=== PATIENT | male | born 1985 | race Caucasian/White ===

== ENCOUNTER 2024-11-12 08:14 | Observation (INO) ==
--- NOTE | 2024-11-12 09:00 | Emergency Department Note ---
Impression & Plan Lumbar back pain with radiculopathy affecting lower extremity, Herniated lumbar intervertebral disc ED Provider Note CHIEF COMPLAINT: Right-sided low back pain x 2 days HISTORY OF PRESENT ILLNESS: Patient is a 39-year-old male with past medical history significant for PE on Eliquis, sleep apnea, hearing loss, history of lumbar laminectomy and discectomy in the past who presents to the emergency department for evaluation of low back pain. Patient was hunting and during alligators in [place] earlier this week. He was doing a lot of heavy lifting, bending, twisting and pulling. He states that on Sunday, 2 days ago, he was trying to move one of the alligators, when he felt something in his right low back. It was not a pop but maybe a pull per se and afterwards, lifting and movement was uncomfortable. He woke up on Sunday,, was in fairly significant discomfort, but drove the 16 hours home from [place] to [place]. He took multiple doses of Tylenol throughout the day. He states the back pain has gotten worse. He cannot stand upright or put any weight on his right leg because the leg is weak and joseph on him. He tried some topical Voltaren and wearing his back brace, all without relief. He was crawling around his home this morning because he could not stand and walk. He denies any bowel or bladder incontinence. No saddle anesthesia. He has been having ongoing issues with his back, he was following with pain management at [facility], and had several steroid injections earlier this year, prior to his PEs. No recent injections or interventions. The patient states that the pain is in the midline of his low back, on the right, it radiates out the right back into the right hip and buttock. He then also feels a sharp pain in the right calf, and weakness in the right thigh. No numbness or tingling. REVIEW OF SYSTEMS: Review of systems as per HPI. All other systems reviewed were negative. 10 systems reviewed. PMH: External medical records are reviewed and summarized as above/below. See Problem List. SOCIAL HISTORY: Patient lives at home with his family. Employed. PHYSICAL EXAM: Vital Signs: Reviewed Nurse's notes. CONSTITUTIONAL: Patient is a markedly uncomfortable appearing 39-year-old male who is awake and alert and in obvious distress due to his stated complaint. There is significant discomfort with position changes. CARDIOVASCULAR: Regular rate and rhythm. Peripheral pulses easily palpable. RESPIRATORY: Breath sounds equal and clear to auscultation. ABDOMEN: Bowel sounds are present. Abdomen is soft, nontender and nondistended. INTEGUMENTARY: No lesions or rash, normal skin turgor. LYMPH: No lymphadenopathy. SPINE: Examination of the patient's back does not demonstrate any ecchymosis, abrasions or outward signs of trauma. No erythema, increased warmth or induration. Well-healed surgical scar noted. Patient has midline discomfort to palpation over the low lumbar spine, primarily on the right. Pain extends over the right PSIS, to the right buttock and right greater trochanter. EXTREMITIES: Leg lengths are symmetrical. Negative logroll bilaterally. Strength to right ankle dorsiflexion/plantarflexion is 4/5, compared to 5/5 on the left. Right patellar reflex is 1+, compared to 2+ on the left. Distal pulses are easily palpable. Sensation light touch is intact over the lower extremities bilaterally. Unable to tolerate SLR testing bilaterally. EMERGENCY DEPARTMENT COURSE: The patient was seen and assessed as above. External medical records are reviewed. He had a MRI through the ED in 2022. IV lock was initiated. He was treated with Zofran 4 mg, Dilaudid 1 mg IV, Toradol 30 mg IV, Decadron 10 mg IV and Valium 5 mg p.o. Lumbar spine MRI was ordered. Routine laboratory studies collected. Diagnostics, as interpreted by me: Laboratory studies: Normal white count 8100, coags unremarkable. No electrolyte imbalance, no SUKH, no concerning transaminitis. Imaging studies: Lumbar spine MRI notes a right posterior lateral disc bulge at the L5-S1 level with annular fissure, appears to abut the exiting right L5 and S1 nerve roots. Patient was reassessed. He denied any significant improvement in his pain, and was requesting something additional. MRI findings were reviewed with him. He was ordered an additional Dilaudid 1 mg IV. I did discuss admission/observation for further care and management in the hospital and he was agreeable. Patient reviewed with ED case monitor, [facility]. After review of the information above and other included data, I feel the patient requires inpatient care. Chronic conditions affecting care: History of PE on Eliquis Differential diagnosis: Lumbar strain, disc herniation, acute compression syndrome, cauda equina, diskitis, epidural abscess, hematoma or neurovascular compromise. Past Med/Surg History Problem List (Updated 11/12/24 @ 14:07 by Johana Curiel) Herniated lumbar intervertebral disc (Acute) Lumbar back pain with radiculopathy affecting lower extremity (Acute) Medical History Tinnitus, bilateral Sensorineural hearing loss, bilateral ARVIND (obstructive sleep apnea) Multiple pulmonary emboli Surgical History Hx of vasectomy Hx of arthroscopy of shoulder lt. History of laminectomy L5 History of discectomy L5 Hx of LASIK and PRK Family History Mother Cancer Social History Smoking Status: Never smoker Second Hand Exposure: No; Do You Dip or Chew Tobacco: No; Hx Alcohol Use: No Hx Substance Use: No Preferred Language: Maltese Communication Ability: Effective Economic Adviser Required: No Beliefs That Will Affect Care: None Current Living Situation: Spouse Feels Safe at Home: Yes Assistive Devices: CPAP Allergies Allergies Allergy/AdvReac Type Severity Reaction Status Date / Time No Known Drug Allergies Allergy Verified 08/19/24 13:42 Home Meds Home Medications Medication Instructions Recorded Confirmed apixaban 5 mg tablet (Eliquis) 5 mg PO BID 08/19/24 11/12/24 omega-3 fatty acids 1,000 mg 1,000 mg PO DAILY 09/14/24 11/12/24 capsule multivitamin with minerals-folic 1 tab PO DAILY 11/12/24 11/12/24 acid 200 mcg chewable tablet (Multivitamin Gummies) Results & Data (ED) Vital Signs Vital Signs - 24 hr 11/12/24 08:16 11/12/24 08:47 11/12/24 08:47 Temperature 36.7 C Temperature Source Oral Pulse Rate 67 Pulse Rate [Finger] 64 Respiratory Rate 18 20 Respiratory Effort / Characteristics Non-Labored Spontaneous Respiratory Depth Normal Respiratory Pattern Regular Blood Pressure 141/89 H Blood Pressure [Left Arm] 141/89 H Blood Pressure Mean 106 Blood Pressure Mean [Left Arm] 106 Blood Pressure Position [Left Arm] Pulse Oximetry 100 100 100 Oxygen Delivery Method Room Air Room Air Sepsis Recent Fever Within 48 Hours No Sepsis New/Unexplained Change in Mental Status No Sepsis Action Taken by Nursing No Action Required 11/12/24 11:00 Temperature Temperature Source Pulse Rate Pulse Rate [Finger] 84 Respiratory Rate 20 Respiratory Effort / Characteristics Respiratory Depth Respiratory Pattern Blood Pressure Blood Pressure [Left Arm] 119/67 Blood Pressure Mean Blood Pressure Mean [Left Arm] 84 Blood Pressure Position [Left Arm] Lying Pulse Oximetry 97 Oxygen Delivery Method Room Air Sepsis Recent Fever Within 48 Hours Sepsis New/Unexplained Change in Mental Status Sepsis Action Taken by [facility] Medications Current Medication List: was personally reviewed by me Laboratory Data Attestation: I reviewed the patient's lab results. 11/12/24 09:18 11/12/24 09:18 Lab Results 11/12/24 Range/Units 09:18 WBC 8.12 (4.8-10.8) K/ul RBC 5.77 (4.70-6.10) M/uL Hgb 16.5 (14.0-18.0) g/dl Hct 48.5 (42.0-52.0) % MCV 84.1 (80.0-100.0) fL MCH 28.6 (25.0-34.0) pg MCHC 34.0 (32.0-36.0) g/dL RDW Std Deviation 37.0 (36.4-46.3) fL RDW Coeff of Theo 12.2 (11.5-14.5) % Plt Count 264 (130-400) K/uL MPV 9.2 L (9.4-12.4) fL PT 11.0 (9.0-12.0) Seconds INR 1.0 (0.9-1.1) APTT 26 (21-31) Seconds PTT Ratio 1.0 Sodium 142 (136-145) mmol/L Potassium 4.0 (3.5-5.1) mmol/L Chloride 109 H (98-107) mmol/L Carbon Dioxide 27 (21-32) mmol/L Anion Gap 6 (3-11) BUN 13 (6-23) mg/dl Creatinine 0.92 (0.6-1.4) mg/dl Est Cr Clr Drug Dosing 141.6 ml/min eGFR 109.19 BUN/Creatinine Ratio 14.1 (10-20) Glucose 91 (70-99(Fasting)) mg/dl Calcium 9.4 (8.6-10.3) mg/dl Total Bilirubin 1.5 H (0.2-1.0) mg/dl AST 16 (13-39) U/L ALT 16 (7-52) U/L Alkaline Phosphatase 56 (34-104) U/L Total Protein 6.9 (6.0-8.3) gm/dl Albumin 4.3 (3.4-5.0) gm/dl Globulin 2.6 (2.5-4.0) gm/dl Albumin/Globulin Ratio 1.7 (0.9-2) Administered Medications Discontinued Medications Dexamethasone Sodium Phosphate (DexamethasonePf 10 Mg/Ml Vial) 10 mg IV NOW ONE Stop: 11/12/24 08:49 Last Admin: 11/12/24 09:22 Dose: 10 mg Documented By: QGV Diazepam (Diazepam 5 Mg Tablet) 5 mg PO NOW ONE Stop: 11/12/24 08:49 Last Admin: 11/12/24 09:23 Dose: 5 mg Documented By: QGV Hydromorphone HCl (Hydromorphone Inj 1 Mg/Ml Syringe) 1 mg IV NOW STA Stop: 11/12/24 08:49 Last Admin: 11/12/24 09:22 Dose: 1 mg Documented By: QGV Hydromorphone HCl (Hydromorphone Inj 1 Mg/Ml Syringe) 1 mg IV NOW STA Stop: 11/12/24 12:12 Last Admin: 11/12/24 12:37 Dose: 1 mg Documented By: SHILPI Ketorolac Tromethamine (Ketorolac 30 Mg/Ml Vial) 30 mg IV NOW STA Stop: 11/12/24 08:49 Last Admin: 11/12/24 09:22 Dose: 30 mg Documented By: QGV Ondansetron HCl (Ondansetron Inj 2 Mg/Ml 2 Ml Vial) 4 mg IV NOW STA Stop: 11/12/24 08:49 Last Admin: 11/12/24 09:22 Dose: 4 mg Documented By: QGV Imaging Data Attestation: I personally reviewed and interpreted this imaging study as follows: Radiologist's Impression: Lumbar Spine MRI 11/12/24 08:48 MRI OF THE LUMBAR SPINE WITHOUT IV CONTRAST CLINICAL HISTORY: Low back pain. Radiculopathy. COMPARISON STUDY: MRI of the lumbar spine dated 10/15/2022. Abdominal CT dated 09/14/2024. TECHNIQUE: MRI of the lumbar spine is performed utilizing various T1 and T2- weighted sequences in the axial and sagittal planes. IV contrast was not administered for this examination. FINDINGS: Lumbar spine: Vertebral body height and alignment are maintained throughout the spine. There is straightening of the lumbar lordosis. Question previous right hemilaminectomy change at L4-L5. The transverse and spinous processes appear intact. There is no evidence of spondylolysis. A small hemangioma is seen in the body of L2. No destructive bony lesion is seen. Intervertebral discs: Disc desiccation and mild loss of is seen at L4-L5 and L5- S1. The remaining discs are normal in height and signal intensity. Spinal cord: The imaged spinal cord is normal in morphology and signal intensity. The conus medullaris terminates at the level of L1. The nerve roots of the cauda equina are normal in morphology. L1-L2: Unremarkable. L2-L3: Unremarkable. L3-L4: Unremarkable. L4-L5: There is minimal posterior disc bulge and annular fissure. No central canal stenosis is seen. Lateral disc bulges causes minimal bilateral subarticular stenosis. The neural foramina are patent. Scar tissue suggested along the right anterior aspect of the thecal sac. Question a 3 mm synovial cyst arising anteriorly from the right facet joint at this level on axial T2-weighted image #26. This approximates the proximal aspect of the neural foramen but could not be corroborated on an any of the other sequences. L5-S1: There is a right posterolateral disc bulge with annular fissure seen on axial image #32. This may abut the exiting right L5 and transient right S1 nerve roots. No central canal stenosis is seen. In conjunction with facet arthropathy there is mild right neural foraminal stenosis. The left neural foramen is patent. Sacrum: Imaged portions of the sacrum is normal in morphology and signal intensity. Soft tissues: The paraspinous soft tissues are within normal limits. The retroperitoneal structures are grossly unremarkable but incompletely evaluated. IMPRESSION: 1. There is a right posterolateral disc bulge at L5-S1 with annular fissure. This may abut the exiting right L5 and transiting right S1 nerve roots. 2. Question a 3 mm synovial cyst arising anteriorly from the right facet joint at L4-L5 approximating the proximal aspect of the right neural foramen. This could not be corroborated on any of the additional sequences. 3. No significant central canal stenosis is seen. See discussion for detailed level by level analysis. 4. No destructive bony process is identified. Electronically signed by: Angelo Witt M.D. 11/12/2024 11:17 AM Discharge Plan Visit Data Chief Complaint: Back Injury/Pain Stated Complaint: BACK PAIN ED Provider: Annika Sparks ED Midlevel Provider: Johana Curiel Discharge Problem: Lumbar back pain with radiculopathy affecting lower extremity, Herniated lumbar intervertebral disc Patient Disposition: Being Evaluated by Hospitalist Condition: Fair Forms Stand Alone Forms: My [facility] Prescriptions Prescriptions: No Action multivit with min-folic acid [Multivitamin Gummies] 200 mcg Tablet,Chewable 1 tab PO DAILY Eliquis 5 mg tablet 5 mg PO BID omega-3 fatty acids 1,000 mg Capsule 1,000 mg PO DAILY Referrals Referrals: Amara Welch, [Primary Care Provider] -
[2024-11-12] MEDS: KETOROLAC 30 MG/ML VIAL IV STA (09:22)
[2024-11-12] MEDS: dexAMETHasone**PF** 10 MG/ML VIAL IV ONE (09:22)
[2024-11-12] MEDS: HYDROmorphone INJ 1 MG/ML SYRINGE IV STA ×2 (09:22→12:37)
[2024-11-12] MEDS: ONDANSETRON INJ 2 MG/ML 2 ML VIAL IV STA (09:22)
[2024-11-12 09:33] LABS: Hematocrit (blood only) 48.5 % (42.0-52.0); Hemoglobin 16.5 g/dl (14.0-18.0); Mean Corpuscular Hemoglobin 28.6 pg (25.0-34.0); Mean Corpuscular Volume 84.1 fL (80.0-100.0); Platelet Count 264 K/uL (130-400); RDW Standard Deviation 37.0 fL (36.4-46.3); Red Blood Count 5.77 M/uL (4.70-6.10); White Blood Count 8.12 K/ul (4.8-10.8)
[2024-11-12 09:50] LABS: Alanine Aminotransferase 16.0 U/L (7-52); Albumin Globulin Ratio 1.7 (0.9-2); Alkaline Phosphatase 56.0 U/L (34-104); Anion Gap 6.0 (3-11); Bilirubin,Total 1.5 mg/dl (0.2-1.0); Blood Urea Nitrogen 13.0 mg/dl (6-23); Calcium 9.4 mg/dl (8.6-10.3); Carbon Dioxide 27.0 mmol/L (21-32); Chloride 109.0 mmol/L (98-107); Creatinine Clr Calc Pharmacy 141.6 ml/min; Globulin 2.6 gm/dl (2.5-4.0); Glucose 91.0 mg/dl (70-99(Fasting)); Potassium 4.0 mmol/L (3.5-5.1); Sodium 142.0 mmol/L (136-145); Total Protein 6.9 gm/dl (6.0-8.3)
[2024-11-12 10:08] LABS: INR 1.0 (0.9-1.1); Partial Thromboplastin Time 26 Seconds (21-31); Prothrombin Time 11.0 Seconds (9.0-12.0)
--- NOTE | 2024-11-12 11:18 | Magnetic Resonance Report ---
MRI OF THE LUMBAR SPINE WITHOUT IV CONTRAST CLINICAL HISTORY: Low back pain. Radiculopathy. COMPARISON STUDY: MRI of the lumbar spine dated 10/15/2022. Abdominal CT dated 09/14/2024. TECHNIQUE: MRI of the lumbar spine is performed utilizing various T1 and T2-weighted sequences in the axial and sagittal planes. IV contrast was not administered for this examination. FINDINGS: Lumbar spine: Vertebral body height and alignment are maintained throughout the spine. There is strai ghtening of the lumbar lordosis. Question previous right hemilaminectomy change at L4-L5. The transve rse and spinous processes appear intact. There is no evidence of spondylolysis. A small hemangioma is seen in the body of L2. No destructive bony lesion is seen. Intervertebral discs: Disc desiccation and mild loss of is seen at L4-L5 and L5-S1. The remaining dis cs are normal in height and signal intensity. Spinal cord: The imaged spinal cord is normal in morphology and signal intensity. The conus medullari s terminates at the level of L1. The nerve roots of the cauda equina are normal in morphology. L1-L2: Unremarkable. L2-L3: Unremarkable. L3-L4: Unremarkable. L4-L5: There is minimal posterior disc bulge and annular fissure. No central canal stenosis is seen. Lateral disc bulges causes minimal bilateral subarticular stenosis. The neural foramina are patent. S car tissue suggested along the right anterior aspect of the thecal sac. Question a 3 mm synovial cyst arising anteriorly from the right facet joint at this level on axial T2-weighted image #26. This roselia roximates the proximal aspect of the neural foramen but could not be corroborated on an any of the ot her sequences. L5-S1: There is a right posterolateral disc bulge with annular fissure seen on axial image #32. This may abut the exiting right L5 and transient right S1 nerve roots. No central canal stenosis is seen. In conjunction with facet arthropathy there is mild right neural foraminal stenosis. The left neural foramen is patent. Sacrum: Imaged portions of the sacrum is normal in morphology and signal intensity. Soft tissues: The paraspinous soft tissues are within normal limits. The retroperitoneal structures a re grossly unremarkable but incompletely evaluated. IMPRESSION: 1. There is a right posterolateral disc bulge at L5-S1 with annular fissure. This may abut the exitin g right L5 and transiting right S1 nerve roots. 2. Question a 3 mm synovial cyst arising anteriorly from the right facet joint at L4-L5 approximating the proximal aspect of the right neural foramen. This could not be corroborated on any of the additi onal sequences. 3. No significant central canal stenosis is seen. See discussion for detailed level by level analysis . 4. No destructive bony process is identified. Electronically signed by: Angelo Witt M.D. 11/12/2024 11:17 AM
--- NOTE | 2024-11-12 12:55 | History & Physical Report ---
Date of Service November 12, 2024 Assessment & Plan (1) Lumbar back pain with radiculopathy affecting lower extremity: Plan: Patient is 39 year old male with PMH recent history unprovoked bilateral PEs, currently on Eliquis, chronic back pain presented to ER with c/o increased low back pain with RLE radicuopathy x 2 days after moving large alligators. H/O lumbar laminectomy in 2019 in [place]. H/O low back injections at [facility] in past without relief In ER afebrile, vitals stable In ER was given Toradol 30 mg IV, total 2 mg morphine IV, Valium 5 mg p.o., dexamethasone 10 mg IV, Zofran 4 mg IV MRI Lumbar spine: 1. There is a right posterolateral disc bulge at L5-S1 with annular fissure. This may abut the exiting right L5 and transiting right S1 nerve roots. 2. Question a 3 mm synovial cyst arising anteriorly from the right facet joint at L4-L5 approximating the proximal aspect of the right neural foramen. This could not be corroborated on any of the additional sequences. 3. No significant central canal stenosis is seen. See discussion for detailed level by level analysis. 4. No destructive bony process is identified. Admit med surg Pain control with Scheduled Tylenol, lidocaine patch. oxycodone, morphine as needed Flexeril Start prednisone 40 mg daily PT/OT eval Consider ortho spine consult CBC, BMP in am (2) Multiple pulmonary emboli: Plan: Unprovoked 08/14/2024 dx bilateral PEs and was started on Eliquis On Eliquis Gita ARREOLA, CP Seen by hematology, Dr. Dominguez on 08/27/2024. Negative Factor V Leiden and prothrombin gene mutation, Anticardiolipin antibody IgG and IgM and beta 2 glycoprotein IgG and IgM were normal. Per note recommended indefinite anticoagulation but pt agreed to 6 months and re-evaluate. Hematology appointment on 01/27/25 for recheck DVT Prophylaxis On Eliquis Admit med surg Follows with Dr Amara Welch for routine care Pt was seen and care coordinated with Dr Nicole. See addendum I spent a total of 62 minutes reviewing notes, outpatient records, labs, medication, coordinating, documenting and providing care for this patient excluding time spent in the performance of separately billed services and excluding time spent by another provider/QHP. History of Present Illness Chief Complaint: Back pain Primary Care Provider: Amara Welch DO Patient is 39 year old male with PMH recent history unprovoked bilateral PEs, currently on Eliquis, chronic back pain presented to ER with c/o increased low back pain x 2 days. Patient reports lumbar back surgery 2019 in [place]. Patient states since 2020 having intermittent episodes of low back pain with pain to right leg. Patient had been receiving low back injections with pain management at [facility] but felt they were not helpful. Patient reports over the weekend was hunting alligators in [place] and was lifting and moving heavy alligators. He states moved an alligator and felt increased low back pain. He reports rode in car home from [place] and upon returning home increased low back pain with radiation into buttock and calf and difficulty ambulating and moving secondary to increased pain. Also reports feels like right leg giving out when attempting to walk. Denies loss control of bowel or bladder. Denies extremity paresthesias. Denies fever/chills, diaphoresis, N/V/D/C, BARRON, dizziness, CP, SOB, palpitations, cough, rhinorrhea, abdominal pain, extremity edema, rashes, urinary symptoms. Per inpatient chart review 08/14/2024 hospitalized for bilateral PEs and was started on Eliquis. Per outpatient chart review visit with hematology, Dr. Dominguez on 08/27/2024 for follow-up PEs. His workup for Factor V Leiden and prothrombin gene mutation which were negative and Anticardiolipin antibody IgG and IgM and beta 2 glycoprotein IgG and IgM were normal. Per note discussion that patient does not want to continue anticoagulation indefinitely. It was recommended with unprovoked DVT patient ideally should continue anticoagulation indefinitely, however patient agreed to continue for 6 months and then re-evaluate. He is scheduled to return to clinic on 01/27/25 for recheck and repeat CBC and CMP. Per outpatient chart review seen by orthopedic spine at [facility] on 09/10/2024 and per office note no surgical interventions were recommended at the time secondary to recent PE and anticoagulation use Allergies Allergy/AdvReac Type Severity Reaction Status Date / Time No Known Drug Allergies Allergy Verified 08/19/24 13:42 Home Medications Medication Instructions Recorded Confirmed Type apixaban 5 mg tablet (Eliquis) 5 mg PO BID 08/19/24 11/12/24 History omega-3 fatty acids 1,000 mg 1,000 mg PO DAILY 09/14/24 11/12/24 History capsule multivitamin with minerals-folic 1 tab PO DAILY 11/12/24 11/12/24 History acid 200 mcg chewable tablet (Multivitamin Gummies) Past Med/Surg History Problem List (Updated 11/12/24 @ 14:07 by Johana Cruiel) Herniated lumbar intervertebral disc (Acute) Lumbar back pain with radiculopathy affecting lower extremity (Acute) Medical History Tinnitus, bilateral Sensorineural hearing loss, bilateral ARVIND (obstructive sleep apnea) Multiple pulmonary emboli Surgical History Hx of vasectomy Hx of arthroscopy of shoulder lt. History of laminectomy L5 History of discectomy L5 Hx of LASIK and PRK Family History Mother Cancer Social History Smoking Status: Never smoker Second Hand Exposure: Yes; Do You Dip or Chew Tobacco: No; Hx Alcohol Use: No Hx Substance Use: No Preferred Language: Lao Communication Ability: Effective Clinical Analyst Required: No Beliefs That Will Affect Care: None Current Living Situation: Spouse Other Information That Helps Us Care for You: No Feels Safe at Home: Yes Safety Concerns: Feels Safe At This Time Assistive Devices: Hearing Aid - Bilateral Review of Systems Review of Systems: All systems reviewed & are unremarkable except as noted in HPI & below Physical Exam Physical Exam: General: no distress, WDWN Head: normocephalic, atraumatic Eyes: conjunctiva non-injected, anicteric ENT: normal inspection external ears, nose, mucous membranes moist Neck: supple, trachea midline Lungs: clear, no respiratory distress, no wheezing/rhonchi/rales CV: RRR, no murmur, no pretibial edema Abd: normal BS, soft, non-tender Back: +healed surgical scar to midline low back. No ecchymosis or erythema noted to back. +tenderness to palpation over lower lumbar spinous process and right paraspinous muscles and right buttock. +straight leg raise to approx 25 degrees. distal pulses palpable, sensation to light touch intact Ext: no cyanosis, no erythema Neuro: A&O x 3, no focal deficits noted, normal affect Skin: warm, dry Results & Data Results & Data Vital Signs (Past 12 Hours) Vital Signs Temp Pulse Pulse Resp BP BP Pulse Ox 11/12/24 11:00 84 20 119/67 97 11/12/24 08:47 100 11/12/24 08:47 64 20 141/89 H 100 11/12/24 08:16 36.7 C 67 18 141/89 H 100 O2 Del Method 11/12/24 11:00 Room Air 11/12/24 08:47 Room Air 11/12/24 08:47 11/12/24 08:16 Room Air Laboratory Results Short CBC 11/12/24 Range/Units 09:18 WBC 8.12 (4.8-10.8) K/ul Hgb 16.5 (14.0-18.0) g/dl Hct 48.5 (42.0-52.0) % Plt Count 264 (130-400) K/uL BMP 11/12/24 09:18 Sodium 142 Potassium 4.0 Chloride 109 H Carbon Dioxide 27 BUN 13 Creatinine 0.92 Glucose 91 Calcium 9.4 Liver Function 11/12/24 Range/Units 09:18 Total Bilirubin 1.5 H (0.2-1.0) mg/dl AST 16 (13-39) U/L ALT 16 (7-52) U/L Alkaline Phosphatase 56 (34-104) U/L Albumin 4.3 (3.4-5.0) gm/dl Diagnostic Findings Lumbar Spine MRI 11/12/24 08:48 MRI OF THE LUMBAR SPINE WITHOUT IV CONTRAST CLINICAL HISTORY: Low back pain. Radiculopathy. COMPARISON STUDY: MRI of the lumbar spine dated 10/15/2022. Abdominal CT dated 09/14/2024. TECHNIQUE: MRI of the lumbar spine is performed utilizing various T1 and T2- weighted sequences in the axial and sagittal planes. IV contrast was not administered for this examination. FINDINGS: Lumbar spine: Vertebral body height and alignment are maintained throughout the spine. There is straightening of the lumbar lordosis. Question previous right hemilaminectomy change at L4-L5. The transverse and spinous processes appear intact. There is no evidence of spondylolysis. A small hemangioma is seen in the body of L2. No destructive bony lesion is seen. Intervertebral discs: Disc desiccation and mild loss of is seen at L4-L5 and L5- S1. The remaining discs are normal in height and signal intensity. Spinal cord: The imaged spinal cord is normal in morphology and signal intensity. The conus medullaris terminates at the level of L1. The nerve roots of the cauda equina are normal in morphology. L1-L2: Unremarkable. L2-L3: Unremarkable. L3-L4: Unremarkable. L4-L5: There is minimal posterior disc bulge and annular fissure. No central canal stenosis is seen. Lateral disc bulges causes minimal bilateral subart icular stenosis. The neural foramina are patent. Scar tissue suggested along the right anterior aspect of the thecal sac. Question a 3 mm synovial cyst arising anteriorly from the right facet joint at this level on axial T2-weighted image #26. This approximates the proximal aspect of the neural foramen but could not be corroborated on an any of the other sequences. L5-S1: There is a right posterolateral disc bulge with annular fissure seen on axial image #32. This may abut the exiting right L5 and transient right S1 nerve roots. No central canal stenosis is seen. In conjunction with facet arthropathy there is mild right neural foraminal stenosis. The left neural foramen is patent. Sacrum: Imaged portions of the sacrum is normal in morphology and signal intensity. Soft tissues: The paraspinous soft tissues are within normal limits. The retroperitoneal structures are grossly unremarkable but incompletely evaluated. IMPRESSION: 1. There is a right posterolateral disc bulge at L5-S1 with annular fissure. This may abut the exiting right L5 and transiting right S1 nerve roots. 2. Question a 3 mm synovial cyst arising anteriorly from the right facet joint at L4-L5 approximating the proximal aspect of the right neural foramen. This could not be corroborated on any of the additional sequences. 3. No significant central canal stenosis is seen. See discussion for detailed level by level analysis. 4. No destructive bony process is identified. Electronically signed by: Angelo Witt M.D. 11/12/2024 11:17 AM Supervising Physician Co-Signing Physician Notes Patient seen and examined at bedside. Discussed with above provider. Patient presents with lumbar radiculopathy pain with radiation to right lower extremity for last 2 days. Found to have right posterior lateral disc bulge at L5-S1. Started on pain control, steroid and Flexeril. Orthospine consulted; appreciate recommendation I have reviewed the advanced practitioner's documentation, and I agree with, and take responsibility for the plan of care I spent a total of 20 minutes coordinating, documenting, and providing care for this patient excluding time spent in the performance of separately billed services. All of the aforementioned completed while collaborating with the assigned advanced practitioner for a full treatment plan
[2024-11-12] MEDS ORDERED: MAGNESIUM HYDROXIDE SUSP 30 ML UDC PO PRN (15:09)
[2024-11-12] MEDS ORDERED: CYCLOBENZAPRINE HCL 5 MG TAB PO PRN (15:09)
[2024-11-12] MEDS ORDERED: ONDANSETRON INJ 2 MG/ML 2 ML VIAL IV PRN (15:09)
[2024-11-12 15:26] VITALS: RESP 18
[2024-11-12] MEDS: CYCLOBENZAPRINE HCL 5 MG TAB PO SCH (15:53)
[2024-11-12] MEDS: ACETAMINOPHEN 500 MG TAB PO SCH (15:53)
[2024-11-12] MEDS: LIDOCAINE 5% 1 PATCH TD SCH (15:53)
[2024-11-12] MEDS: REMOVE LIDODERM PATCH SCH (20:05)
[2024-11-12] MEDS: APIXABAN 5 MG TABLET PO SCH (20:07)
[2024-11-13] MEDS: MoRPHine SULFATE 4 MG/ML 1 ML CARP\\VIAL IV PRN ×2 (04:10→20:15)
[2024-11-13] MEDS: CYCLOBENZAPRINE HCL 10 MG TAB PO PRN (04:21)
[2024-11-13] MEDS: POLYETHYLENE (MIRALAX) 17 GM PACK PO PRN (07:31)
[2024-11-13] MEDS: predniSONE 20 MG TAB PO SCH (07:32)
[2024-11-13 07:39] LABS: Hematocrit (blood only) 46.8 % (42.0-52.0); Hemoglobin 15.8 g/dl (14.0-18.0); Mean Corpuscular Hemoglobin 28.2 pg (25.0-34.0); Mean Corpuscular Volume 83.6 fL (80.0-100.0); Platelet Count 237 K/uL (130-400); RDW Standard Deviation 36.6 fL (36.4-46.3); Red Blood Count 5.60 M/uL (4.70-6.10); White Blood Count 10.16 K/ul (4.8-10.8)
[2024-11-13 08:10] LABS: Alanine Aminotransferase 12.0 U/L (7-52); Albumin Globulin Ratio 1.6 (0.9-2); Alkaline Phosphatase 51.0 U/L (34-104); Anion Gap 6.0 (3-11); Bilirubin,Total 0.8 mg/dl (0.2-1.0); Blood Urea Nitrogen 19.0 mg/dl (6-23); Calcium 9.1 mg/dl (8.6-10.3); Carbon Dioxide 27.0 mmol/L (21-32); Chloride 109.0 mmol/L (98-107); Creatinine Clr Calc Pharmacy 129.8 ml/min; Globulin 2.5 gm/dl (2.5-4.0); Glucose 93.0 mg/dl (70-99(Fasting)); Potassium 4.1 mmol/L (3.5-5.1); Sodium 142.0 mmol/L (136-145); Total Protein 6.4 gm/dl (6.0-8.3)
--- NOTE | 2024-11-13 10:33 | Consultation ---
Date of Consultation November 13, 2024 Assessment & Plan (1) Herniated lumbar intervertebral disc: Imaging as well as treatment plan have been reviewed with Dr. Tavarez. We are hoping to avoid surgical intervention. He has 2 level disc disease including a synovial cyst at L4-5 on the right as well as a small disc herniation at L5-S1 on the right. He is certainly high risk given his recent PEs this year and is now on Eliquis. Will work on pain control. I will order Dopplers of bilateral lower extremities. Should he require surgical intervention would recommend referral back to tertiary care center whom he is already established with. History of Present Illness Attending Physician: Moiz Valerio MD History of Present Illness Karri is a pleasant 39-year-old gentleman who presented to the ER with back and right leg pain. He has been seen in conjunction with Dr. Tavarez. Most of his symptoms are in his back. He has a history of undergoing a prior nestor ectomy in 2019 in [place] and did well for 2 or 3 years. Since then he struggled with back pain. He was initially under the pain management care with Dr. Kumar upon group home he then has been seeing Dr. Maradiaga which has received mostly SI injections which performed provide modest relief. He is also had a recent surgical consultation by Dr. Huff who did not recommend surgical intervention in light of recent PEs and now on Eliquis. Patient was found earlier this year to have DVT in his left lower extremity which then progressed to a PE. He is still on Eliquis. Recently he states last week he was in [place] where he drove. He was moving large alligators and then 3 days ago traveled 14 hours home by driving in his car. This is when his pain really escalated. It has not been manageable at home therefore he presented to the emergency room. Denies bowel or bladder dysfunction. Does not have true pain in the right leg so to speak more of a weakness. Allergies Allergy/AdvReac Type Severity Reaction Status Date / Time No Known Drug Allergies Allergy Verified 08/19/24 13:42 Home Medications Medication Instructions Recorded Confirmed Type apixaban 5 mg tablet (Eliquis) 5 mg PO BID 08/19/24 11/12/24 History omega-3 fatty acids 1,000 mg 1,000 mg PO DAILY 09/14/24 11/12/24 History capsule multivitamin with minerals-folic 1 tab PO DAILY 11/12/24 11/12/24 History acid 200 mcg chewable tablet (Multivitamin Gummies) cyclobenzaprine 10 mg tablet 10 mg PO TID PRN back pain #30 tabs 11/14/24 Rx dexamethasone 4 mg tablet 4 mg PO DAILY 7 days #7 tabs 11/14/24 Rx lidocaine 5 % topical patch 1 patch transdermal QAM #15 ea 11/14/24 Rx oxycodone 5 mg tablet 5 mg PO Q4 PRN pain 5 days #14 tabs 11/14/24 Rx pantoprazole 40 mg tablet,delayed 40 mg PO QAM #14 tabs 11/14/24 Rx release Patient History Medical History Tinnitus, bilateral Sensorineural hearing loss, bilateral ARVIND (obstructive sleep apnea) Multiple pulmonary emboli Surgical History Hx of vasectomy Hx of arthroscopy of shoulder lt. History of laminectomy L5 History of discectomy L5 Hx of LASIK and PRK Family History Mother Cancer Social History Smoking Status: Never smoker Second Hand Exposure: Yes; Do You Dip or Chew Tobacco: No; Hx Alcohol Use: No Hx Substance Use: No Preferred Language: Setswana Communication Ability: Effective Warper Fixer Required: No Beliefs That Will Affect Care: None Current Living Situation: Spouse Feels Safe at Home: Yes Assistive Devices: CPAP Review of Systems Review of Systems: All systems reviewed & are unremarkable except as noted in HPI & below Physical Exam Physical Exam: Patient is examined by Dr. Tavarez Patient's is in the room as well He is uncomfortable he is laying on his left side with his right leg flexed and elevated on pillows Cooperative with exam Has point tenderness over the right sciatic notch nontender on the left Well-healed lumbar incision strength intact bilateral lower extremities Results & Data Vital Signs (Past 12 Hours) Vital Signs Temp Pulse Resp BP Pulse Ox O2 Del Method 11/13/24 07:21 36.6 C 60 18 132/76 99 Room Air 11/12/24 23:17 36.9 C 75 18 144/71 H 98 Room Air Diagnostic Findings [facility], [place] [phone] Magnetic Resonance Report Patient: KARRI GREEN V Admit Date: 11/12/24 MR#: [id number] Address1: [address] Acct ID:[id number] Address2: Date: 1985 [facility] Zip: [place] [address] Age: 39 Location: ED Sex: M Room/Bed: Att Phy: Diagnosis: BACK PAIN Dea Phy: Amara Welch DO Service Date: 11/12/24 Fam Phy: Interpreting Phy: Angelo Witt MDAdmit Phy: Ordering Phy: Payal Curiel PA cc: ~ MRI OF THE LUMBAR SPINE WITHOUT IV CONTRAST CLINICAL HISTORY: Low back pain. Radiculopathy. COMPARISON STUDY: MRI of the lumbar spine dated 10/15/2022. Abdominal CT dated 09/14/2024. TECHNIQUE: MRI of the lumbar spine is performed utilizing various T1 and T2-mynor ghted sequences in the axial and sagittal planes. IV contrast was not administered for this examination. FINDINGS: Lumbar spine: Vertebral body height and alignment are maintained throughout the spine. There is straightening of the lumbar lordosis. Question previous right hemilaminectomy change at L4-L5. The transverse and spinous processes appear intact. There is no evidence of spondylolysis. A small hemangioma is seen in the body of L2. No destructive bony lesion is seen. Intervertebral discs: Disc desiccation and mild loss of is seen at L4-L5 and L5- S1. The remaining discs are normal in height and signal intensity. Spinal cord: The imaged spinal cord is normal in morphology and signal intensity. The conus medullaris terminates at the level of L1. The nerve roots of the cauda equina are normal in morphology. L1-L2: Unremarkable. L2-L3: Unremarkable. L3-L4: Unremarkable. L4-L5: There is minimal posterior disc bulge and annular fissure. No central canal stenosis is seen. Lateral disc bulges causes minimal bilateral subarticular stenosis. The neural foramina are patent. Scar tissue suggested along the right anterior aspect of the thecal sac. Question a 3 mm synovial cyst arising anteriorly from the right facet joint at this level on axial T2-weighted image #26. This approximates the proximal aspect of the neural foramen but could not be corroborated on an any of the other sequences. L5-S1: There is a right posterolateral disc bulge with annular fissure seen on axial image #32. This may abut the exiting right L5 and transient right S1 nerve roots. No central canal stenosis is seen. In conjunction with facet arthropathy there is mild right neural foraminal stenosis. The left neural foramen is patent. Sacrum: Imaged portions of the sacrum is normal in morphology and signal intensity. Soft tissues: The paraspinous soft tissues are within normal limits. The retroperitoneal structures are grossly unremarkable but incompletely evaluated. IMPRESSION: 1. There is a right posterolateral disc bulge at L5-S1 with annular fissure. This may abut the exiting right L5 and transiting right S1 nerve roots. 2. Question a 3 mm synovial cyst arising anteriorly from the right facet joint at L4-L5 approximating the proximal aspect of the right neural foramen. This could not be corroborated on any of the additional sequences. 3. No significant central canal stenosis is seen. See discussion for detailed level by level analysis. 4. No destructive bony process is identified. Electronically signed by: Angelo Witt M.D. 11/12/2024 11:17 AM Dictated: 11/12/24 1106 Transcribed: 11/12/24 1106
--- NOTE | 2024-11-13 12:39 | XRay Report ---
XR lumbar spine flex/ext only CLINICAL HISTORY: standing films. Back pain. COMPARISON STUDY: Lumbar spine MRI November 12, 2024. TECHNIQUE: Standing lateral radiographs of the lumbar spine were obtained in the neutral, flexion and extension positions. FINDINGS: There is straightening of the lumbar lordosis. Alignment is otherwise anatomic. Vertebral b pinky heights are maintained. There is no evidence for instability during flexion or extension although flexion and extension appear somewhat diminished. IMPRESSION: 1. Straightening of the lumbar lordosis. No evidence for lumbar spine instability during flexion or e xtension. 2. No lumbar spine fractures. ACT 112: Negative or not required by law. Electronically signed by: Bennett Britton M.D. 11/13/2024 12:38 PM
--- NOTE | 2024-11-13 13:44 | Ultrasound Report ---
ULTRASOUND BILATERAL LOWER EXTREMITY VENOUS CLINICAL HISTORY: History of pulmonary embolus. COMPARISON STUDY: Bilateral lower extremity venous ultrasound dated 08/14/2024 TECHNIQUE: Real-time, grayscale, and color Doppler sonography of the deep veins of the right and left lower extremity was performed from the inguinal crease to the calf. Compression and augmentation wer e utilized. FINDINGS: There is no sonographic evidence of deep venous thrombosis identified in the right or left lower extremity. The common femoral, superficial femoral, and popliteal veins are patent and normally compressible bilaterally. The greater saphenous vein and the profunda femoris vein at the junction w ith the common femoral vein are clear in both legs. The visualized calf veins are patent bilaterally. IMPRESSION: There is no sonographic evidence of deep venous thrombosis identified in the right or lef t lower extremity. ACT 112: Negative or not required by law. Electronically signed by: Angelo Witt M.D. 11/13/2024 1:43 PM
--- NOTE | 2024-11-13 18:23 | Hospitalist Progress Note ---
Date of Service November 13, 2024 Assessment & Plan (1) Lumbar back pain with radiculopathy affecting lower extremity: Plan: Patient is 39 year old male with PMH recent history unprovoked bilateral PEs, currently on Eliquis, chronic back pain presented to ER with c/o increased low back pain with RLE radicuopathy x 2 days after moving large alligators. #Lumbar Herniated Disk -has had instrumentation in past now with L4-S1 vertebral herniated disks -has recent PEs making him higher risk for procedure Plan: -ortho spine consulted, appreciate recs -stop prednisone, start decadron 6mg daily for severe nociceptive pain in setting of nerve compression from disk, no NSAIDS on blood thinner -continue oxycodone and breakthrough IV morphine -start scheduled cyclobenzaprine -continue lidocaine patch #Subacute PE -continue eliquis I spent a total of 50 minutes in direct patient care, including [id number] time with the patient and/or family, reviewing medical records, ordering and reviewing diagnostic tests, and coordinating care with other healthcare providers. This time includes: history taking, physical examination, medical decision making, counseling, ECG interpretation, imaging interpretation, lab interpretation, orders, and education, excluding time spent in the performance of separately billed services. Admission and Anticipated Discharge Date Admission Date: November 12, 2024 Subjective Patient seen and examined at bedside. Friend at bedside as well. Patient doing ok today. Was moving alligators and pulled right lower back. Able to move but quite painful. Review of Systems Review of Systems: CONSTITUTIONAL: Patient denies fevers, chills, sweats and weight changes. EYES: Patient denies any visual symptoms. EARS, NOSE, AND THROAT: No difficulties with hearing. No symptoms of rhinitis or sore throat. CARDIOVASCULAR: Patient denies chest pains, palpitations, orthopnea and paroxysmal nocturnal dyspnea. RESPIRATORY: No dyspnea on exertion, no wheezing or cough. GI: No nausea, vomiting, diarrhea, constipation, abdominal pain, hematochezia or melena. : No urinary hesitancy or dribbling. No nocturia or urinary frequency. No abnormal urethral discharge. MUSCULOSKELETAL: right leg, right lower back pain. NEUROLOGIC: No chronic headaches, no seizures. Patient denies numbness, tingling or weakness. PSYCHIATRIC: Patient denies problems with mood disturbance. No problems with anxiety. ENDOCRINE: No excessive urination or excessive thirst. DERMATOLOGIC: Patient denies any rashes or skin changes. Physical Exam Physical Exam: Gen: A&O 3 NAD HEENT: NCAT, EOMI, not icteric. External ears normal. No rhinorrhea. Moist mucous membranes. Neck: Supple, full range of motion, no observable masses, No meningeal sign. Lungs: No Respiratory distress. CV: RRR, no edema. Abdomen: Soft, nondistended, No rebound tenderness. MSK: right lower back severe tenderness to palpation, worst on right transverse process of L5/S1 Skin: No rashes, petechiae, lesions. Normal color per patient. Neuro: Normal Gait, Grossly intact. Psych: Appropriate for situation. Results & Data Results & Data Vital Signs (Past 12 Hours) Vital Signs Temp Pulse Resp BP Pulse Ox O2 Del Method 11/13/24 15:52 36.9 C 68 18 120/66 94 Room Air 11/13/24 07:21 36.6 C 60 18 132/76 99 Room Air Laboratory Results -personally reviewed, no leukocytosis, creatinine at baseline Medications Administered Acetaminophen (Acetaminophen 500 Mg Tab) 1,000 mg PO Q8H [facility] Stop: 12/12/24 15:08 Last Admin: 11/13/24 15:23 Dose: 1,000 mg Documented By: Admin: 11/13/24 07:31 Dose: 1,000 mg Documented By: Admin: 11/12/24 23:00 Dose: Not Given Documented By: Admin: 11/12/24 15:53 Dose: 1,000 mg Documented By: MONTSE Apixaban (Apixaban 5 Mg Tablet) 5 mg PO BID [facility] Stop: 12/12/24 20:59 Last Admin: 11/13/24 07:32 Dose: 5 mg Documented By: Admin: 11/12/24 20:07 Dose: 5 mg Documented By: SURINDER Cyclobenzaprine HCl (Cyclobenzaprine Hcl 10 Mg Tab) 10 mg PO TID PRN PRN Reason: muscle spasm Stop: 12/13/24 08:59 Last Admin: 11/13/24 13:43 Dose: 10 mg Documented By: Admin: 11/13/24 04:21 Dose: 10 mg Documented By: SURINDER Lidocaine (Lidocaine 5% 1 Patch) 1 patch TD QAM [facility] Stop: 12/12/24 15:08 Last Admin: 11/13/24 07:31 Dose: 1 patch Documented By: Admin: 11/12/24 15:53 Dose: 1 patch Documented By: MONTSE Miscellaneous (Remove Lidoderm Patch) 1 each N/A DAILY@2100 [facility] Stop: 12/12/24 20:59 Last Admin: 11/12/24 20:05 Dose: 1 each Documented By: SURINDER Morphine Sulfate (Morphine Sulfate 4 Mg/Ml 1 Ml Carp\Vial) 3 mg IV Q4H PRN PRN Reason: Severe Pain (Scale 7, 8, 9,10) Stop: 11/26/24 15:08 Last Admin: 11/13/24 15:23 Dose: 3 mg Documented By: Admin: 11/13/24 09:15 Dose: 3 mg Documented By: Admin: 11/13/24 04:10 Dose: 3 mg Documented By: SURINDER Oxycodone HCl (Oxycodone Hcl Ir 5 Mg Tab (Immediate Release)) 5 mg PO Q6H PRN PRN Reason: Moderate Pain (Scale 4, 5, 6) Stop: 11/26/24 15:08 Last Admin: 11/13/24 17:19 Dose: 5 mg Documented By: Admin: 11/13/24 10:55 Dose: 5 mg Documented By: Admin: 11/13/24 03:42 Dose: 5 mg Documented By: Admin: 11/12/24 18:04 Dose: 5 mg Documented By: MONTSE Pantoprazole Sodium (Pantoprazole 40 Mg Tab) 40 mg PO QAM [facility] Stop: 12/13/24 08:59 Last Admin: 11/13/24 07:32 Dose: 40 mg Documented By: PARISH Polyethylene Glycol (Polyethylene (Miralax) 17 Gm Pack) 17 gm PO DAILY PRN PRN Reason: Constipation Stop: 12/12/24 15:08 Last Admin: 11/13/24 07:31 Dose: 17 gm Documented By: PARISH Prednisone (Prednisone 20 Mg Tab) 40 mg PO DAILY [facility] Stop: 12/13/24 08:59 Last Admin: 11/13/24 07:32 Dose: 40 mg Documented By: PARISH
[2024-11-13] MEDS: dexAMETHasone 6 MG in SYRINGE 0 ML IV SCH (20:15)
[2024-11-13] MEDS: CYCLOBENZAPRINE HCL 10 MG TAB PO SCH (20:16)
[2024-11-13 22:43] VITALS: TEMP 98.2
[2024-11-14 07:14] LABS: Anion Gap 6.0 (3-11); Blood Urea Nitrogen 15.0 mg/dl (6-23); Calcium 9.1 mg/dl (8.6-10.3); Carbon Dioxide 26.0 mmol/L (21-32); Chloride 109.0 mmol/L (98-107); Creatinine Clr Calc Pharmacy 136.7 ml/min; Glucose 119.0 mg/dl (70-99(Fasting)); Potassium 4.2 mmol/L (3.5-5.1); Sodium 141.0 mmol/L (136-145)
[2024-11-14 08:20] VITALS: BP 121/71; PULSE 68; O2SAT 98
--- NOTE | 2024-11-14 16:46 | Discharge Summary ---
Discharge Summary Date of Service November 14, 2024 Principal Dx & Hospital Course #1 = Principal Diagnosis (1) Lumbar back pain with radiculopathy affecting lower extremity: Patient is 39 year old male with PMH recent history unprovoked bilateral PEs, currently on Eliquis, chronic back pain presented to ER with c/o increased low back pain with RLE radicuopathy x 2 days after moving large alligators. #Lumbar Herniated Disk -has had instrumentation in past now with L4-S1 vertebral herniated disks -has recent PEs making him higher risk for procedure Plan: -ortho spine consulted, appreciate recs -stop prednisone, start decadron 6mg daily for severe nociceptive pain in setting of nerve compression from disk, no NSAIDS on blood thinner -continue oxycodone and breakthrough IV morphine -start scheduled cyclobenzaprine -continue lidocaine patch #Subacute PE -continue eliquis I spent a total of 50 minutes in direct patient care, including [id number] time with the patient and/or family, reviewing medical records, ordering and reviewing diagnostic tests, and coordinating care with other healthcare providers. This time includes: history taking, physical examination, medical decision making, counseling, ECG interpretation, imaging interpretation, lab interpretation, orders, and education, excluding time spent in the performance of separately billed services. Notes For Next Care Provider Patient is 39 year old male with PMH recent history unprovoked bilateral PEs, currently on Eliquis, chronic back pain presented to ER with c/o increased low back pain x 2 days. Patient reports lumbar back surgery 2019 in [place]. On medicine, ortho spine consulted, recommended against surgical interventions at this time. Started on steroids with improvement in function, per PT/OT ok for discharge home. On 11/14/2024 patient medically stable for discharge. To do: [ ] f/u with ortho spine, pain management Medication Changes From Visit -started decadron, flexeril, short dose oxycodone, lidocaine patch Admission HPI Per Admitting Provider Patient is 39 year old male with PMH recent history unprovoked bilateral PEs, currently on Eliquis, chronic back pain presented to ER with c/o increased low back pain x 2 days. Patient reports lumbar back surgery 2019 in [place]. Patient states since 2020 having intermittent episodes of low back pain with pain to right leg. Patient had been receiving low back injections with pain management at [facility] but felt they were not helpful. Patient reports over the weekend was hunting alligators in [place] and was lifting and moving heavy a lligators. He states moved an alligator and felt increased low back pain. He reports rode in car home from [place] and upon returning home increased low back pain with radiation into buttock and calf and difficulty ambulating and moving secondary to increased pain. Also reports feels like right leg giving out when attempting to walk. Denies loss control of bowel or bladder. Denies extremity paresthesias. Denies fever/chills, diaphoresis, N/V/D/C, BARRON, dizziness, CP, SOB, palpitations, cough, rhinorrhea, abdominal pain, extremity edema, rashes, urinary symptoms. Per inpatient chart review 08/14/2024 hospitalized for bilateral PEs and was started on Eliquis. Per outpatient chart review visit with hematology, Dr. Dominguez on 08/27/2024 for follow-up PEs. His workup for Factor V Leiden and prothrombin gene mutation which were negative and Anticardiolipin antibody IgG and IgM and beta 2 glycoprotein IgG and IgM were normal. Per note discussion that patient does not want to continue anticoagulation indefinitely. It was recommended with unprovoked DVT patient ideally should continue anticoagulation indefinitely, however patient agreed to continue for 6 months and then re-evaluate. He is sche duled to return to clinic on 01/27/25 for recheck and repeat CBC and CMP. Per outpatient chart review seen by orthopedic spine at [facility] on 09/10/2024 and per office note no surgical interventions were recommended at the time secondary to recent PE and anticoagulation use Discharge Exam Gen: A&O 3 NAD HEENT: NCAT, EOMI, not icteric. External ears normal. No rhinorrhea. Moist mucous membranes. Neck: Supple, full range of motion, no observable masses, No meningeal sign. Lungs: No Respiratory distress. CV: RRR, no edema. Abdomen: Soft, nondistended, No rebound tenderness. MSK: right lower back severe tenderness to palpation, worst on right transverse process of L5/S1 Skin: No rashes, petechiae, lesions. Normal color per patient. Neuro: Normal Gait, Grossly intact. Psych: Appropriate for situation. Updated Medication List Medication Instructions Recorded Confirmed Type apixaban 5 mg tablet (Eliquis) 5 mg PO BID 08/19/24 11/12/24 History omega-3 fatty acids 1,000 mg 1,000 mg PO DAILY 09/14/24 11/12/24 History capsule multivitamin with minerals-folic 1 tab PO DAILY 11/12/24 11/12/24 History acid 200 mcg chewable tablet (Multivitamin Gummies) cyclobenzaprine 10 mg tablet 10 mg PO TID PRN back pain #30 tabs 11/14/24 Rx dexamethasone 4 mg tablet 4 mg PO DAILY 7 days #7 tabs 11/14/24 Rx lidocaine 5 % topical patch 1 patch transdermal QAM #15 ea 11/14/24 Rx oxycodone 5 mg tablet 5 mg PO Q4 PRN pain 5 days #14 tabs 11/14/24 Rx pantoprazole 40 mg tablet,delayed 40 mg PO QAM #14 tabs 11/14/24 Rx release Hospital Stay Data Consultations 11/12/24 12:36 ED Decision to Admit Stat 11/12/24 15:09 Consult Orthopedic Spine Surgery Routine Diagnostic Imagining Performed 11/12/24 08:48 MR lumbar spine wo con Stat 11/13/24 10:29 US venous doppler LE BI Urgent Pending Results Patient Have Any Pending Studies at Discharge: No Discharge Instructions Given to Patient (Per Discharging Provider) Diagnosis: lumbar herniated disk Follow Ups: PCP, ortho spine (preferably at a tertiary care facility) Incidentals: synovial cyst L4-L5 1. Please follow up with PCP and ortho spine surgery. 2. Stay hydrated! 3. Take medications as prescribed. Total Time Total Time Spent Total Time Spent (In Minutes): I spent a total of 35 minutes in direct patient care, including [id number] time with the patient and/or family, reviewing medical records, ordering and reviewing diagnostic tests, and coordinating care with other healthcare providers. This time includes: history taking, physical examination, medical decision making, counseling, ECG interpretation, imaging interpretation, lab interpretation, orders, and education, excluding time spent in the performance of separately billed services.
== END 2024-11-14 14:04 | disposition home or self-care (01) ==
LOC: ED 08:14 → 3N 08:14 → SUATTDRO 13:00 → 3N 14:55